=== PATIENT | female | born 1955 | race Caucasian/White ===

== ENCOUNTER 2016-08-08 19:02 | Emergency (ER) | payer OTHER ==
[~2016-08-08 19:02] MED LIST: ALLEGRA180 MG PO; ALLEGRA60 MG; BUPROPION HYDR150 M1 PO; CLEOCIN HCL300 MG PO; ECOTRIN81 MG PO; FIORICET 325 MG1 TAB PO; LOPRESSOR 25MG25 MG PO; MEDROL DOSEPAK1 PAC PO; MOMETASONE0.05 MG/Ac NASB; PANTOPRAZOLE SO20 MG PO; PREDNISONE10 MG AD; PREDNISONE10 MG PO; PROAIR HFA0.09 MG/Ac INH; ROBITUSSIN W/CO10 ML PO; VITAMIN D1000 IU PO; ZITHROMAX 500M500 MG PO; ZITHROMAX Z-PA250 MG PO; ZOFRAN ODT4 MG PO
[2016-08-08 20:12] LABS: ABSOLUTE BASOPHIL COUNT 0 /CUMM (0.0-0.2); ABSOLUTE EOSINOPHIL COUNT 0.1 /CUMM (0.0-0.7); ABSOLUTE GRANULOCYTE CT 2.4 /CUMM (1.4-6.5); ABSOLUTE LYMPH COUNT 1.6 /CUMM (1.2-3.4); ABSOLUTE MONOCYTE COUNT 0.4 /CUMM (0.10-0.60); BASOPHIL % 0.8 % (0.0-2.0); EOSINOPHIL % 2.4 % (0-5); GRANULOCYTE % 53.8 % (42.2-75.2); HEMATOCRIT 38.1 % (37-47); MEAN CORPUSCULAR HGB 22.5 PG (27.0-31.0); MEAN CORPUSCULAR HGB CONC 31.6 G/DL (33.0-37.0); MEAN CORPUSCULAR VOLUME 71.1 FL (81.0-99.0); MEAN PLATELET VOLUME 11.5 FL (7.4-10.4); RBC DISTRIBUTION WIDTH 19.7 % (11.5-14.5); RED BLOOD CELL CT 5.35 /CUMM (4.20-5.40); WHITE BLOOD CELL COUNT 4.5 /CUMM (4.8-10.8)
[2016-08-08 20:27] LABS: PLATELET COUNT 169 /CUMM (130-400)
--- NOTE | 2016-08-08 21:09 | RADIOLOGY REPORT ---
EXAMINATION: XR PORTABLE CHEST CLINICAL INFORMATION: Chest tightness, shortness of breath COMPARISON: CTA chest 02/23/2016. Chest x-ray 07/26/2015 TECHNIQUE: Portable view of the chest was obtained. FINDINGS: The film is underpenetrated. There is bibasilar atelectasis. No focal consolidation or mass. No pleural effusion or pneumothorax. Normal pulmonary vascularity. Borderline cardiomegaly. IMPRESSION: Underpenetrated film. Bibasilar atelectasis. No definite acute pulmonary disease. Borderline cardiomegaly.
--- NOTE | 2016-08-08 21:17 | ED DYSPNEA/ASTHMA COMPLAINT ---
History of Present Illness General Chief Complaint: Dyspnea (COPD, CHF, Other) Stated Complaint: PT TROUBLE BREATHING CHEST TIGHTNESS Source: patient Exam Limitations: no limitations Vital Signs & Intake/Output Vital Signs & Intake/Output Vital Signs Date Time Temp Pulse Resp B/P Pulse O2 O2 Flow FiO2 Ox Delivery Rate 08/08 2135 97.6 99 20 110/85 95 Nasal 2.0L Cannula 08/08 2019 98.3 08/08 2004 98 Nasal 2.0L Cannula 08/08 2002 96 Nasal 2.0L Cannula 08/088 113 24 166/90 93 Room Air Allergies Coded Allergies: mold (Mild, URI SYMPTOMS 09/18/15) Sulfa (Sulfonamide Antibiotics) (UNKNOWN 09/18/15) adhesive (HIVES 09/18/15) cat dander (CATS - URI 09/18/15) Reconcile Medications Albuterol Sulfate (Proair Hfa) 0.09 MG/Actuation SHADIA 1 PUFF INH 4 TIMES/DAY PRN DYSPNEA Cholecalciferol (Vitamin D3) 1,000 UNIT TABLET 3 TAB PO DAILY SUPPLEMENT ( Reported) Fexofenadine Hydrochloride (Lalitha) 180 MG TAB 1 TAB PO DAILY ALLERGIES ( Reported) Metoprolol Tartrate (Lopressor) 25 MG TAB 1 TAB PO BID BLODD PRESSURE Mometasone Furoate (Nasonex) 0.05 MG/Actuation SPR 2 SPRAY NASB DAILY ALLERGIES (Reported) Prednisone 10 MG TAB 10 MG PO PRN HIVES (Reported) Triage Note: PER PT SAW PMD 1 WEEK AGO FOR A COUGH AND SINUS INFECTION ON ANTIBIOTICS NOT GETTING ANY BETTER ,SOB AT REST. NO CP TIRED OF BEING SOB, +SMOKER Triage Nurses Notes Reviewed? yes Onset: Abrupt Duration: week(s): (1), constant, continues in ED Timing: recent history Activities at Onset: none HPI: 61-year-old female comes into emergency room for further evaluation of cough, congestion, mucus production, sinus congestion, fever chills body patient saw her primary care doctor the other day who started her on Augmentin. Patient reports that she is now having some associated wheezing and shortness of breath. Patient has a history of COPD. Patient is not on oxygen at home. Patient denies any chest pain but feels some tightness in the chest which is related to her breathing. (JONA FOOTE,CHARLEY) Past History Travel History Traveled to [place] past 21 day No Medical History Any Pertinent Medical History? see below for history Neurological: migraine EENT: NONE Cardiovascular: AFIB Respiratory: asthma, COPD Gastrointestinal: NONE Hepatic: NONE Renal: NONE Musculoskeletal: NONE Psychiatric: NONE Endocrine: NONE (DIET CONTROLLED), diabetes Blood Disorders: NONE Cancer(s): non-hodgkin lymphoma (ON NO MEDICATIONS) RISK DEVELOPER/Reproductive: NONE Surgical History Surgical History: , hysterectomy, LT FOOT SX Psychosocial History What is your primary language Surinamese Tobacco Use: Current Daily Use Daily Tobacco Use Amount/Type: => 5 Cigarettes daily Family History Family History, If Any: FATHER Heart disease, Onset: 50-60. Relation not specified for: Diabetes mellitus in mother Hypertension in father Hx Contributory? No (CHARLEY FLORES) Review of Systems Review of Systems Constitutional: Reports: see HPI. EENTM: Reports: see HPI. Respiratory: Reports: see HPI. Cardiovascular: Reports: no symptoms. GI: Reports: no symptoms. Genitourinary: Reports: no symptoms. Musculoskeletal: Reports: no symptoms. Skin: Reports: no symptoms. Neurological/Psychological: Reports: no symptoms. Hematologic/Endocrine: Reports: no symptoms. Immunologic/Allergic: Reports: no symptoms. All Other Systems: Reviewed and Negative (CHARLEY FLORES) Physical Exam Physical Exam General Appearance: well developed/nourished, no apparent distress, alert, awake Head: atraumatic, normal appearance Eyes: Bilateral: normal appearance, EOMI. Ears, Nose, Throat: normal pharynx, normal ENT inspection, nasal congestion Neck: normal inspection Respiratory: no respiratory distress, decreased breath sounds, wheezing Cardiovascular: irregularly irregular Extremities: normal inspection Neurologic/Psych: awake, alert, oriented x 3, normal gait Skin: intact, normal color Core Measures ACS in differential dx? No Severe Sepsis Present: No Septic Shock Present: No (CHARLEY FLORES) Progress Differential Diagnosis: asthma, AMI, bronchitis, costochondritis, CHF, COPD, musculoskeletal pain, pericarditis, pulmonary embolism, pneumonia, pneumothorax, rib fracture, unstable angina, influenza Plan of Care: Orders Procedure Date/time Status RAPID VIRAL INFLUENZA A 08/08 1949 Complete TROPONIN LEVEL 08/08 1948 Complete COMPREHENSIVE METABOLIC PANEL 08/08 1948 Complete CBC WITHOUT DIFFERENTIAL 08/08 1948 Complete EKG 08/08 1904 Active Laboratory Tests 08/08/16 2003: Anion Gap 9, Estimated GFR > 60, BUN/Creatinine Ratio 16.0, Glucose 182 H, Calcium 8.9, Total Bilirubin 0.5, AST 56 H, ALT 42, Alkaline Phosphatase 104, Troponin I < 0.01, Total Protein 6.9, Albumin 3.9, Globulin 3.0, Albumin/ Globulin Ratio 1.3, CBC w Diff NO MAN DIFF REQ, RBC 5.35, MCV 71.1 L, MCH 22.5 L, RDW 19.7 H, MPV 11.5 H, Gran % 53.8, Lymphocytes % 35.0, Monocytes % 8.0, Eosinophils % 2.4, Basophils % 0.8, Absolute Granulocytes 2.4, Absolute Lymphocytes 1.6, Absolute Monocytes 0.4, Absolute Eosinophils 0.1, Absolute Basophils 0, PUBS MCHC 31.6 L Diagnostic Imaging: Viewed by Me: Radiology Read. Discussed w/RAD: Radiology Read. Radiology Impression: SERVICE DATE: 08/08/16 EXAM TYPE: RAD - XRY- PORTABLE CHEST XRAY EXAMINATION: XR PORTABLE CHEST CLINICAL INFORMATION: Chest tightness, shortness of breath COMPARISON: CTA chest 02/23/2016. Chest x-ray 12/2015 TECHNIQUE: Portable view of the chest was obtained. FINDINGS: The film is underpenetrated. There is bibasilar atelectasis. No focal consolidation or mass. No pleural effusion or pneumothorax. Normal pulmonary vascularity. Borderline cardiomegaly. IMPRESSION: Underpenetrated film. Bibasilar atelectasis. No definite acute pulmonary disease. Borderline cardiomegaly. DICTATED BY: AGUEDA GO MD DATE/TIME DICTATED:08/08/162102 ENERGY CONSERVATION DIRECTOR:LAMAR Initial ED EKG: rate (93), AFIB, pvcs (JONA FOOTE,CHARLEY) Departure Departure Disposition: HOME OR SELF CARE Condition: Stable Clinical Impression Primary Impression: Influenza B Referrals: STEVEN NEELY,KIMBERLY Gutierrez (PCP/Family) Additional Instructions: Rest. Drink plenty of fluids. Tylenol for fever and body aches. Return if any difficulty breathing. Return if any other concerns. Use albuterol pump at home. Please go over all results of today's visit with your primary care doctor. Contact your primary care doctor to let them know you were here in the emergency room. There may be nonspecific findings which may not be related to your visit today here in the emergency room but may require further evaluation and chronic monitoring by your primary care doctor. If you had a laceration today the chance of foreign body always remains. You should follow-up with your primary care doctor for recheck in 3-5 days for a wound check. If you had an x-ray done there is a chance that a fracture could have been missed on initial read and you should follow-up with your primary care doctor for repeat x-rays if symptoms persist. If your blood pressure was elevated here in the emergency room please have rechecked by her primary care doctor within the next 48 hours by your primary care doctor. If you were prescribed a narcotic here in the emergency room or any type of controlled substances you're not allowed to drive while taking this medication or operate any type of heavy machinery. Narcotics can make you feel lightheaded dizziness nausea and can cause constipation. You may need to order picker/assembler a stool softener. Thank you for choosing [facility] emergency room. Please return to the emergency room immediately if you have any other concerns worsening of symptoms. Departure Forms: Customer Survey General Discharge Information Comments 08/08/2016 11:13:58 PM Patient feels significantly better after nebulizer treatment. Walking O2 saturation was above 93%. No respiratory distress. Positive flu swab. Clinically looks well. Nontoxic-appearing. Case discussed with Dr. murillo. At this time I do not feel the patient requires admission. Return if any other concerns. (CHARLEY FLORES) PA/MECHANIC/WELDER Co-Sign Statement Statement: ED Attending supervision documentation- x I saw and evaluated the patient. I have also reviewed all the pertinent lab results and diagnostic results. I agree with the findings and the plan of care as documented in the PA's/MECHANIC/WELDER's documentation. [] I have reviewed the ED Record and agree with the PA's/MECHANIC/WELDER's documentation. [] Additions or exceptions (if any) to the PAs/MECHANIC/WELDER's note and plan are summarized below: [] (LISBETH NEELY,IMAN) Critical Care Note Critical Care Note Critical Care Time: non-applicable (CHARLEY FLORES)
[2016-08-08 21:36] VITALS: BP 110/85
== END 2016-08-08 21:41 ==
LOC: ERH 19:02
PROVIDERS: Physician Assistant Medical
DX: R06.00 Dyspnea, unspecified (principal); J11.1 Influenza due to unidentified influenza virus with other respiratory manifestations
CPT/HCPCS: 1263; 87804; 87804-59; 93005; 93010